=== PATIENT | male | born 1950 | race Caucasian/White ===

== ENCOUNTER → 2017-09-04 09:55 | Outpatient (CLI) | payer MEDICARE, SELFPAY ==
--- NOTE | 2017-09-04 | DI.CT.S_ITS ---
PROCEDURE: CT HEAD/BRAIN WO CON INDICATIONS: memory deficit following cerebral infarction TECHNIQUE: Noncontrast 4.5 mm thick angled axial sections acquired from the foramen magnum to the vertex, with coronal and sagittal reformats. For radiation dose reduction, the following was used: automated exposure control, adjustment of mA and/or kV according to patient size. COMPARISON: None. FINDINGS: Image quality: Excellent. CSF spaces: Basal cisterns are patent. No extra-axial fluid collections. Ventricles are normal in size and shape. Brain: No midline shift. No intracranial masses or hemorrhage. Hardin-white matter interface is normal. There is an area of low attenuation involving the left thalamus. No definite additional areas of abnormal density are evident within the brain. Skull and face: Calvarium and visualized facial bones are intact, without suspicious lesions. Sinuses: Visualized sinuses and mastoids are clear. IMPRESSION: 1. No acute intracranial hemorrhage. 2. Probable old area of ischemia involving the left thalamus. The need for further evaluation utilizing MRI may be determined clinically. Dictated by: Rafael Lozano M.D. on 09/04/2017 at 9:34 Approved by: Rafael Lozano M.D. on 09/04/2017 at 9:35
== END ==
PROVIDERS: Visit Provider Physician Assistant Medical
DX: I69.311 Memory deficit following cerebral infarction (principal)
CPT/HCPCS: 70450